=== PATIENT | female | born 1970 | race African-American/Black ===

== ENCOUNTER 2021-11-12 09:47 | Emergency (ER) | payer OTHER, SELFPAY ==
[2021-11-12 09:49] VITALS: BP 152/87; PULSE 70; RESP 18; TEMP 36.4; O2SAT 100
[2021-11-12 10:04] VITALS: BP 139/93; PULSE 74; RESP 18; TEMP 36.6; O2SAT 98
[2021-11-12 10:31] LABS: Basophils Percent Auto 0.5 % (0.2-1.2); Eosinophils Absolute Auto 0.1 K/mm3 (0-0.3); Eosinophils Percent Auto 0.8 % (0-4.4); Hematocrit 40.4 % (37.0-47.0); Hemoglobin 13.7 g/dL (12.0-15.0); Immature Granulocyte Absolute 0.03 K/mm3 (0.00-0.031); Immature Granulocyte Percent A 0.5 % (0-0.5); Lymphocytes Absolute Auto 2.16 K/mm3 (0.9-3.2); Lymphocytes Percent Auto 32.9 % (18.3-44.2); Mean Corpuscular HGB Conc 33.9 g/dl (32-36); Mean Corpuscular Hemoglobin 31.4 pg (26-34); Mean Corpuscular Volume 92.7 fl (80-100); Mean Platelet Volume 8.7 fl (7.4-10.4); Monocytes Absolute Auto 0.5 K/mm3 (0.1-0.6); Neutrophils Absolute Auto 3.8 K/mm3 (1.3-6.7); Neutrophils Percent Auto 58.3 % (45.5-73.1); Platelet Count Result 340 k/mm3 (150-375); Red Blood Count 4.36 M/mm3 (4.2-5.4); Red Cell Distribution Width 13.1 % (11.5-14.5); White Blood Count 6.6 K/mm3 (4.5-10.0)
[2021-11-12 10:38] LABS: Add Urine Microscopic? YES; Appearance Urine Clear (Clear); Bilirubin Urine Negative (Negative); Blood Urine Negative (Negative); Color Urine Yellow (Yellow); Glucose Urine UA Negative (Negative); Ketones Urine 1+ mg/dL (Negative); Leukocyte Esterase Ur Negative LEU/UL (Negative); Mucus Urine Moderate /lpf; Nitrate Urine Negative (Negative); Protein Urine 1+ mg/dL (Negative); Specific Grav Ur 1.028 (1.001-1.035); Squamous Epithelial Cell Urine Few /hpf (Few); WBC Urine 0-3 /hpf
[2021-11-12 10:42] LABS: Alanine Aminotransferase 27 U/L (4-35); Albumin Level 4.5 g/dL (3.5-5.1); Alkaline Phosphatase 91 U/L (38-126); Anion Gap 12 mmol/L (8-16); Aspartate Amino Transferase 37 U/L (14-36); Bilirubin,Total 0.9 mg/dL (0.2-1.3); Blood Urea Nitrogen 11 mg/dL (7-17); Calcium 8.9 mg/dL (8.4-10.2); Carbon Dioxide 23 mmol/L (22-30); Chloride 104 mmol/L (98-107); Estimated CRCL calculation 99 ml/min; Estimated Glomerular Filt Rate > 60; Glucose 105 mg/dL (65-110); Lipase 62 U/L (23-300); Potassium 3.2 mmol/L (3.4-5.0); Sodium 139 mmol/L (137-145)
--- NOTE | 2021-11-12 10:52 | ED.ABDPAIN ---
HPI - Abdominal Pain General Chief Complaint: Abdominal Pain <AKASH Wang Last Filed: 11/12/21 12:31> Stated Complaint: stomach problems <AKASH Wang Last Filed: 11/12/21 12:31> Time Seen by Provider: 11/12/21 10:14 <AKASH Wang Last Filed: 11/12/21 12:31> Source: patient <AKASH Wang Last Filed: 11/12/21 12:31> Mode of arrival: ambulatory <AKASH Wang Last Filed: 11/12/21 12:31> Limitations: no limitations <AKASH Wang Last Filed: 11/12/21 12:31> History of Present Illness HPI narrative: 51-year-old female presents to the ED with a 3-day history of diarrhea and intermittent diffuse abdominal pain. She was initially experiencing 4-5 episodes of watery diarrhea however states diarrhea is beginning to improve with 2 episodes yesterday and one episode since waking today. She at times experiences crampy abdominal pain although denies abdominal pain currently. She has noticed a small amount of bright red blood in her stool today. No recent history of documented fever, chills, nausea, or vomiting. She is status post liposuction and abdominoplasty. She denies other abdominal surgical history. Daughter recently with similar symptoms. Patient states that she was diagnosed with COVID-19 2 weeks ago. She has not taken any medication for her current symptoms. No recent antibiotic use or recent hospitalizations. <AKASH Wang Last Filed: 11/12/21 12:31> Related Data Home Medications: Home Medications Medication Instructions Recorded Confirmed amlodipine 11/12/21 11/12/21 lisinopril 11/12/21 <AKASH Wang Last Filed: 11/12/21 12:31> Allergies/Adverse Reactions: Allergies Allergy/AdvReac Type Severity Reaction Status Date / Time No Known Allergies Allergy Verified 11/12/21 10:06 <AKASH Wang Last Filed: 11/12/21 12:31> Review of Systems Review of Systems: CONSTITUTIONAL: Denies fever, chills, or sweats. EYES: Denies visual changes, redness, or discharge. ENT: Denies rhinorrhea, congestion, sore throat, or otalgia. CARDIOVASCULAR: Denies chest pain, palpitations, or edema. RESPIRATORY: Denies cough or dyspnea. GASTROINTESTINAL: + Diarrhea and abdominal pain GENITOURINARY: Denies dysuria or hematuria. SKIN: Denies rash or itching. MUSCULOSKELETAL: Denies back pain, joint pain, or myalgia. NEUROLOGIC: Denies headache, numbness, dizziness, or weakness. PSYCHIATRIC: Denies anxiety or depression. <Ranjan Moran PA-C - Last Filed: 11/12/21 12:31> All systems reviewed & are unremarkable except as noted in HPI and below <Ranjan Moran PA-C - Last Filed: 11/12/21 12:31> Exam Narrative: GENERAL: Well-appearing, well-nourished, and in no acute distress. HEAD: Normocephalic, atraumatic. EYES: PERRLA and EOMI. ENT: Nares clear, no rhinorrhea or epistaxis. Mucous membranes moist. Oropharynx without tonsillar hypertrophy exudate or other lesions. Bilateral TMs pearly huitron nonbulging NECK: Supple. No adenopathy or masses. No carotid bruits or JVD CHEST: Clear to auscultation. No respiratory distress. No wheezes rales or rhonchi HEART: Regular rate and rhythm. No murmur heard. Normal peripheral pulses. ABDOMEN: Soft, nontender, nondistended, normal active bowel sounds. EXTREMITIES: Normal range of motion. No edema. SKIN: Warm, dry, no rash. NEURO: No focal deficits. Alert and oriented x3. PSYCH: Normal mood and affect. <Ranjan Moran PA-C - Last Filed: 11/12/21 12:31> Course Course Emergency Course: Patient presents with 3-day history of diarrhea with intermittent crampy abdominal pain. Abdomen is soft and nontender at this time. Labs reveal mild hypokalemia, potassium given in the ED. Patient given fluid bolus as well. Suspect viral etiology. Low suspicion for surgical intra-abdominal emergency, therefore imaging of the abdomen felt to
[2021-11-12] MEDS: SODIUM CHLORIDE 0.9% IV 1,000 ML 999 ML IV CONT (10:56)
[2021-11-12] MEDS: POTASSIUM CHLORIDE 20 MEQ PACKET (FOR LIQUID) 40 MEQ PO (10:56)
[2021-11-12 13:10] VITALS: BP 157/90; PULSE 86; RESP 14; O2SAT 100
== END 2021-11-12 13:10 | disposition home or self-care (01) ==
PROVIDERS: Emergency Provider Emergency Medicine; PCP Internal Medicine Infectious Disease
DX: R19.7 Diarrhea, unspecified (principal); R10.9 Unspecified abdominal pain; Z86.16 Personal history of COVID-19
CPT/HCPCS: 36415; 80053; 81001; 81025; 83690; 85025; 96360; 99283; A9270; J7030

== ENCOUNTER 2024-04-25 23:52 | Emergency (ER) | payer OTHER, SELFPAY ==
--- NOTE | ~2024-04-25 | XR_ITS ---
Clinical Indication: Chest pain PA and lateral views of the chest: Comparison: 06/08/2016 Findings: The lungs are clear, without evidence of focal consolidation or pleural effusion. Cardiome diastinal silhouette is within normal limits. Bones and soft tissues are unremarkable. Impression: Normal chest. Reviewed, dictated and finalized at location . Impression: Normal chest.
[2024-04-25 23:53] VITALS: BP 174/101; PULSE 101; RESP 17; TEMP 36.4; O2SAT 100
--- NOTE | 2024-04-25 23:53 | ECG_ITS ---
Test Date: 2024-04-25 23:59:10 Measurements Intervals [place] Rate: 100 P: 61 DE: 139 QRS: 8 QRSD: 97 T: -1 QT: 336 QTc: 434 Interpretive Statements SINUS TACHYCARDIA NONSPECIFIC T-WAVE ABNORMALITY- INF/LAT LEADS BASELINE WANDER- V6 BORDERLINE ECG No previous ECG available for comparison Electronically Signed On 04-26-2024 06:16:02 CDT by Jericho Dao D.O.
--- NOTE | 2024-04-26 00:32 | ECG_ITS ---
Test Date: 2024-04-26 04:56:29 Measurements Intervals [place] Rate: 64 P: 57 NM: 165 QRS: 5 QRSD: 94 T: 21 QT: 395 QTc: 410 Interpretive Statements SINUS RHYTHM LEFT VENTRICULAR HYPERTROPHY CONSIDER INFERIOR INFARCT, AGE INDETERMINATE NONSPECIFIC T-WAVE ABNORMALITY- ANTERIOR LEADS ABNORMAL ECG Compared to ECG 04/25/2024 23:59:10 HEART RATE HAS DECREASED Electronically Signed On 04-26-2024 06:18:12 CDT by Jericho Dao D.O.
[2024-04-26 01:57] LABS: Basophils Absolute Auto 0.1 K/mm3 (0.0-0.1); Basophils Percent Auto 0.7 % (0.2-1.2); Eosinophils Absolute Auto 0.2 K/mm3 (0-0.3); Eosinophils Percent Auto 3.1 % (0-4.4); Hematocrit 39.2 % (37.0-47.0); Hemoglobin 13.5 g/dL (12.0-15.0); Immature Granulocyte Absolute 0.01 K/mm3 (0.00-0.031); Immature Granulocyte Percent A 0.1 % (0-0.5); Lymphocytes Absolute Auto 3.17 K/mm3 (0.9-3.2); Lymphocytes Percent Auto 42.6 % (18.3-44.2); Mean Corpuscular HGB Conc 34.4 g/dl (32-36); Mean Corpuscular Hemoglobin 31.8 pg (26-34); Mean Corpuscular Volume 92.2 fl (80-100); Mean Platelet Volume 8.6 fl (7.4-10.4); Monocytes Absolute Auto 0.6 K/mm3 (0.1-0.6); Monocytes Percent Auto 8.2 % (2.6-8.5); Neutrophils Absolute Auto 3.4 K/mm3 (1.3-6.7); Neutrophils Percent Auto 45.3 % (45.5-73.1); Platelet Count Result 302 k/mm3 (150-375); Red Blood Count 4.25 M/mm3 (4.2-5.4); Red Cell Distribution Width 13.1 % (11.5-14.5); White Blood Count 7.4 K/mm3 (4.5-10.0)
[2024-04-26 02:07] LABS: INR 0.9; Prothrombin Time 12.9 Seconds (11.1-14.7)
[2024-04-26 02:08] LABS: Alanine Aminotransferase 17 U/L (6-35); Albumin Level 4.5 g/dL (3.5-5.1); Alkaline Phosphatase 93 U/L (38-126); Anion Gap 8 mmol/L (4-12); Aspartate Amino Transferase 23 U/L (14-36); Bilirubin,Total 0.9 mg/dL (0.2-1.3); Blood Urea Nitrogen 15 mg/dL (7-17); Calcium 9.2 mg/dL (8.4-10.2); Carbon Dioxide 21 mmol/L (22-30); Chloride 110 mmol/L (98-107); Estimated Glomerular Filt Rate > 60; Glucose 121 mg/dL (65-110); Lipase 92 U/L (23-300); Partial Thromboplastin Time 29.2 Seconds (22.3-36.8); Potassium 3.5 mmol/L (3.4-5.0); Sodium 139 mmol/L (137-145)
[2024-04-26 02:16] LABS: D Dimer < 0.27 ug/mL (<0.48)
[2024-04-26 02:20] LABS: Troponin I < 0.012 ng/mL (0.000-0.034)
[2024-04-26 02:30] VITALS: BP 142/82; PULSE 86; RESP 15; O2SAT 98
[2024-04-26 02:40] VITALS: O2SAT 98
[2024-04-26 02:51] LABS: NT Pro B Type Natriuretic Pept < 20 pg/mL (19.9-100)
[2024-04-26] MEDS: ASPIRIN 81 MG CHEWABLE TABLET 324 MG PO (03:13)
--- NOTE | 2024-04-26 03:23 | ED.CHESTPAIN ---
HPI - Chest Pain General Chief Complaint: Chest Pain Stated Complaint: chest pain Time Seen by Provider: 04/26/24 01:56 Source: patient Limitations: no limitations History of Present Illness HPI narrative: Patient is a 53-year-old female presents to the emergency department complaining of chest pain. Patient states the pain started around 10:00 p.m. tonight, while at rest, comes and goes, no history is pain in the past but has had similar pain that wasn't persistent like this, has a try anything for the pain, has not noticed anything makes the pain better or worse. Patient denies history of heart disease. Patient does admit to history of high blood pressure, diabetes, high cholesterol. Patient denies family history of heart disease at a young age. Patient denies being a smoker. Patient states that when the pain is there last approximately 1 second, is located just above her right breast, goes away for approximately 15 minutes then returns. Patient denies nausea, vomiting, cough, fever, difficulty breathing, numbness, weakness, urinary discomfort, abdominal pain, palpitations. Patient denies history of blood clots. Related Data Home Medications Medication Instructions Recorded Confirmed amlodipine 11/12/21 11/12/21 lisinopril 11/12/21 Allergies Allergy/AdvReac Type Severity Reaction Status Date / Time No Known Allergies Allergy Verified 11/12/21 10:06 Review of Systems Review of Systems: A 10 system review of systems was completed on the patient and is negative except for what is stated in the HPI. Nursing and ancillary documentation was reviewed. PMFSH Comments At time of signature, I have reviewed and agree with nursing past medical, surgical, social and family history unless otherwise noted. Please see the nursing chart for further information. There is no relevant family history pertinent to the presenting complaint. Exam Narrative: CONST: No acute distress. Well nourished. HENMT: Head is normocephalic and atraumatic. Moist mucous membranes. No posterior oropharynx erythema. EYES: No conjunctival icterus, injection, or pallor. PERRL. NECK: No meningeal signs. No JVD. RESP: Able to speak in full sentences. Normal respiratory effort. CTAB. CARDIO: Regular rate. Regular rhythm. 2+ DP and radial pulses bilaterally. GI: Nondistended. No tenderness to palpation. Soft. : No CVA tenderness to palpation. SKIN: No rashes or lesions noted on exposed skin. NEURO: Oriented x3. Moves all extremities. EXTREM/MSK/BACK: No pedal edema. No chest wall tenderness to palpation. PSYCH: Normal affect. Course Vital Signs Vital signs: Vital Signs Temperature 97.6 F 04/25/24 23:53 Pulse Rate 101 H 04/25/24 23:53 Respiratory Rate 17 04/25/24 23:53 Blood Pressure 174/101 H 04/25/24 23:53 Pulse Oximetry 100 04/25/24 23:53 Oxygen Delivery Room Air 04/25/24 23:53 Temperature 97.6 F 04/25/24 23:53 Pulse Rate 67 04/26/24 05:19 Respiratory Rate 14 04/26/24 05:19 Blood Pressure 131/83 04/26/24 05:19 Pulse Oximetry 98 04/26/24 05:19 Oxygen Delivery Room Air 04/26/24 02:40 MDM - Chest Pain MDM Narrative Medical decision making narrative: Patient presents with the above complaint. Initial vitals are remarkable for no significant abnormalities. Physical examination as noted above. Differential diagnosis includes was not limited to: ACS, pneumonia, pneumothorax, costochondritis, GERD, pulmonary embolism. Plan discussed: Laboratory analysis, EKG, chest x-ray, aspirin, continues cardiac monitoring, continuous pulse oximetry. Patient was reassessed at the bedside. No changes in physical exam. Patient is in no acute distress. The patient has remained stable throughout the entire ED visit. patient admits to feeling better at this time. Counseled patient regarding diagnostic results and potential diagnosis. Anticipatory guidance provided. Patient instructed to follow up
[2024-04-26 04:00] VITALS: BP 149/88; PULSE 75; RESP 15; O2SAT 100
[2024-04-26] MEDS: KETOROLAC 15 MG/ML VIAL (*BKC) IV PUSH (04:02)
[2024-04-26] MEDS: FAMOTIDINE 20 MG/2 ML VIAL IV PUSH (04:02)
[2024-04-26 05:19] VITALS: BP 131/83; PULSE 67; RESP 14; O2SAT 98
[2024-04-26 05:22] LABS: Troponin I < 0.012 ng/mL (0.000-0.034)
== END 2024-04-26 05:52 | disposition home or self-care (01) ==
PROVIDERS: Emergency Provider Student in an Organized Health Care Education/Training Program; PCP Internal Medicine Infectious Disease
DX: R07.9 Chest pain, unspecified (principal); R00.0 Tachycardia, unspecified; R94.31 Abnormal electrocardiogram [ECG] [EKG]; I51.7 Cardiomegaly
CPT/HCPCS: 36415; 71046; 80053; 83690; 83880; 84484; 85025; 85380; 85610; 85730; 93005; 96374; 96375; 99284; A9270; J1885

== ENCOUNTER 2025-04-20 10:39 | Emergency (ER) | payer OTHER, SELFPAY ==
[2025-04-20 10:51] VITALS: BP 148/86; PULSE 92; RESP 16; TEMP 37; O2SAT 100
--- NOTE | 2025-04-20 11:26 | ED_ITS ---
HPI - Back Pain/Injury General Chief Complaint: Back Pain/Injury Stated Complaint: BACK PAIN Time Seen by Provider: 04/20/25 11:10 Source: patient and RN notes reviewed Mode of arrival: ambulatory Limitations: no limitations History of Present Illness HPI Narrative: 54-year-old female presents Express Care complaining of low back pain for approximately 2 weeks. Patient denies any apparent injury but states that she might have did something when she lifted a case of bottled water. Patient reports mid back pain that radiates to both sides of her low back and into her buttocks. Patient denies any shooting pain into her legs. Patient reports that the burning sensation. Patient denies any loss of bowel or bladder function, saddle anesthesia, weakness to her legs. Patient has taken [id number] pain medication without relief. Related Data Home Medications ?Medication ?Instructions ?Recorded ?Confirmed ?Last Taken ?Type amlodipine 11/12/21 11/12/21 Unknown History lisinopril 11/12/21 Unknown History Allergies Allergy/AdvReac Type Severity Reaction Status Date / Time No Known Allergies Allergy Verified 11/12/21 10:06 Review of Systems Review of Systems: CONSTITUTIONAL: Denies fever, chills, or sweats. EYES: Denies visual changes, redness, or discharge. ENT: Denies rhinorrhea, congestion, sore throat, or otalgia. CARDIOVASCULAR: Denies chest pain, palpitations, or edema. RESPIRATORY: Denies cough or dyspnea. GASTROINTESTINAL: Denies abdominal pain, nausea, vomiting, or diarrhea. GENITOURINARY: Denies dysuria or hematuria. SKIN: Denies rash or itching. MUSCULOSKELETAL: Positive for back pain. Negative for joint pain, or myalgia. NEUROLOGIC: Denies headache, numbness, loss of bowel or bladder, saddle anesthesia, or weakness. PSYCHIATRIC: Denies anxiety or depression. All other systems reviewed are negative, except as documented in HPI. PMFSH Comments At the time of my signature, I reviewed and agree with the nursing past medical, surgical, social, and family history. There is no relevant family history pertinent to the patient complaint. Exam Narrative: GENERAL: This is a well-nourished, well-developed adult, in no apparent distress. They are non ill-appearing, nontoxic appearing. HEAD: normocephalic, atraumatic. EYES: Sclera clear/white. Conjunctiva normal. Vision is grossly intact. Extraocular movements intact EARS: External ears normal, Hearing grossly intact. NOSE: External nose normal THROAT: Mucous membranes moist, NECK: Neck supple, CARDIOVASCULAR: Regular rate and rhythm RESPIRATORY: Respiratory rate normal, respiratory effort nonlabored, no respiratory distress SKIN: warm, Dry, intact with no suspicious lesions or rash, good texture and turgor. NEURO: awake, alert, and oriented to person, place and time. There were no obvious focal neurologic abnormalities. EXTREMITIES: No joint tenderness, effusion, or edema noted. BACK: Tenderness to palpation throughout low back. No cervical, thoracic, or lumbar point tenderness, no crepitus, or step-offs. No CVA tenderness. Course Course Emergency Course: Portions of this record may have been created with voice recognition software Level of Care: Express Care Visit Vital Signs Vital signs: Vital Signs Temperature 98.6 F 04/20/25 10:51 Pulse Rate 92 04/20/25 10:51 Respiratory Rate 16 04/20/25 10:51 Blood Pressure 148/86 H 04/20/25 10:51 Pulse Oximetry 100 04/20/25 10:51 Temperature 98.6 F 04/20/25 10:51 Pulse Rate 92 04/20/25 10:51 Respiratory Rate 16 04/20/25 10:51 Blood Pressure 148/86 H 04/20/25 10:51 Pulse Oximetry 100 04/20/25 10:51 Reviewed MDM - Back Pain/Injury MDM Narrative Medical decision making narrative: Symptoms appear to be consistent with with sciatica. Will prescribe a course of prednisone. Also prescribe muscle relaxes and lidocaine patches. Discussed physical exam findings. Advised supportive measures and signs/symptoms to go to the ER. Pt is appropriate for outpt treatment and f/u. Differential Diagnosis Differential diagnosis: Likely lumbar radiculopathy, sciatica and strain of lumbar region Critical Care Time Critical Care Time Critical Care Time: No Discharge Plan Discharge Clinical Impression: Low back pain Patient Disposition: Home Condition: Stable Instructions: Sciatica (ED), Acute Low Back Pain (ED) Additional Instructions: Take the muscle relaxer as directed. Do not drive or operate heavy machine, or work while taking the medication as it can make you drowsy. Take the prednisone as directed, take it in the morning take with food. Use the lidocaine patches as directed. You may take Tylenol or ibuprofen as needed for pain Please follow-up with your primary care provider if pain persist Rest. Avoid pushing, pulling, lifting --running or excessive walking-- or anything that worsens the symptoms You may try stretching your lower back or doing spinal decompression to help with symptoms. Go to the emergency department if you develop any numbness or tingling to your groin, weakness in your legs, or any loss of bowel or bladder function. Patient Language: Kazakh Prescriptions: New prednisone 20 mg tablet 40 mg PO DAILY 3 Days Qty: 6 0RF methocarbamol 750 mg tablet 750 mg PO TID Qty: 12 0RF lidocaine 5 % adhesive patch,medicated 1 patch topical DAILY Qty: 15 0RF Rx Instructions: leave on most painful area for up to 12 hrs No Action acetaminophen 500 mg tablet 500 mg PO Q6H PRN (Reason: pain) Qty: 30 0RF famotidine 20 mg tablet 20 mg PO DAILY Qty: 14 0RF ibuprofen 400 mg tablet 400 mg PO Q6H PRN (Reason: pain) Qty: 30 0RF amlodipine lisinopril dicyclomine 10 mg capsule 10 mg PO QID Qty: 20 0RF Follow-up/Referrals: Kermit,Vianca Morales [Primary Care Provider] - Time of Disposition: 11:24
== END 2025-04-20 11:29 | disposition home or self-care (01) ==
PROVIDERS: PCP Internal Medicine Infectious Disease
DX: M54.50 Low back pain, unspecified (principal); I10 Essential (primary) hypertension; E78.00 Pure hypercholesterolemia, unspecified
CPT/HCPCS: 99213; G0463

== ENCOUNTER 2025-05-17 09:17 | Outpatient (CLI) | payer OTHER, SELFPAY ==
--- NOTE | ~2025-05-17 | US_ITS ---
US abdomen complete EXAMINATION: US Abdomen Complete INDICATION: Abdominal pain PROCEDURE: Realtime High Resolution abdomen ultrasound. COMPARISON: No prior studies for comparison FINDINGS: Gallbladder within normal limits. No gallstones, pericholecystic fluid, gallbladder wall t hickening or biliary dilatation. Common bile duct measures 4.6 mm. Liver echotexture is heterogeneous with nodular liver surface, consistent with cirrhosis.. Pancreas within normal limits. Pancreatic tail is obscured by bowel gas. Spleen is unremarkeable. Renal echo texture is within normal limits bilaterally without hydronephrosis, contour deforming mass or renal s tone. There are left renal cysts. Right kidney measures 10 cm. Left kidney measures 10.4 cm. Visualized aspects of the aorta and IVC are within normal limits. Portal vein is patent. No sonograph ic Cordero's sign indicated by the technologist. IMPRESSION: 1: Cirrhosis of the liver. Reviewed, dictated and finalized at location A. IMPRESSION: 1: Cirrhosis of the liver.
--- NOTE | ~2025-05-17 | XR_ITS ---
XR lumbar spine 2-3V 05/17/2025 10:56 Indication: Low back pain Procedure: 3 views lumbar spine Comparison: 09/23/2010 Findings: No fracture, subluxation or dislocation. Vertebral body heights are maintained. There is di sc narrowing at L5-S1. No evidence for spondylolisthesis. Pedicles intact. There are eggshell calcifi cations in the pelvis, likely partially calcified uterine fibroids. Impression: 1: Mild lumbar spondylosis. Reviewed, dictated and finalized at location B. Impression: 1: Mild lumbar spondylosis.
--- OUTSIDE RECORDS SUMMARY | 2025-05-17 09:21 | XMS_ITS | Continuity of Care Document ---
Author Organization [facility] Address [address] [place] [address] [address] [place] [address] Phone Care Team Providers Care Medical Administrator Name Role Phone Gabrielle Kee Unavailable Unavailable Procedures Procedure Date Office/outpatient Visit, [facility] Advance Directives Directive Yes / No Effective Date File Name No Information Encounters Encounter Description Practice Location Reason(s) For Visit Diagnoses Date Provider Providers Copied on Encounter Office/outpat ient Visit, [facility], [address] [place] [address] [address], [place], [place], [id number], [place] tel:[phone] [facility] No Information [address]. [address] , [address], [place], [address], [place]. tel:[phone] Family History Family Member Type Diagnosis Age At Onset No Information Payers Payer name Insurance type Covered libertarian ID Authoriza tion(s) [employer] [place] Out [place] [id number] Social History Type Description Quantity Date Captured Comments Sex Female Smoking Status No Information Chief Complaint And Reason For Visit No Information Reason For Referral Reason For Referral No Information History Of Present Illness Encounter Date Complaint History Of Prese nt Illness No Information Functional Status Date Functional Assessmen t No Information Instructions Date Instruction Additional Infor mation No Information Assessments Type Assessment Date No Information Patient Care Teams Name Effective Dates (start - stop) Status Members No Information
--- OUTSIDE RECORDS SUMMARY | 2025-05-17 09:21 | XMS_ITS | Clinical Summary ---
Author Organization [facility] at the [facility] Address [address] [place] [address] Care Team Providers Care Valve Setter Name Role Phone Andrew Carmen MD Primary Care Provider Allergies No known active allergies Medications ibuprofen (ADVIL,MOTRIN) 600 mg tablet take 1 tablet (600MG) by ORAL route 3 times every day with food 90 2 1 Active amLODIPine (NORVASC) 10 mg tablet amlodipine 10 mg tablet Active hydrOXYzine (ATARAX) 25 mg tablet hydroxyzine HCl 25 mg tablet Active lisinopriL (PRINIVIL,ZESTR IL) 40 mg tablet lisinopril 40 mg tablet Active loratadine (CLARITIN) 10 mg tablet loratadine 10 mg tablet Active dicyclomine (BENTYL) 10 mg capsule dicyclomine 10 mg capsule TAKE ONE CAPSULE BY MOUTH FOUR TIMES DAILY NEEDED. Active PARoxetine (PAXIL) 10 mg tablet Take 1 tablet (10 mg total) by mouth daily Active rosuvastatin (CRESTOR) 20 mg tablet rosuvastatin 20 mg tablet Active medroxyPROGESTE Rory 150 mg/mL injectionIndica tions:Well woman exam ADMINISTER 1 ML(150 MG) IN THE MUSCLE EVERY 3 MONTHS DIRECTED 1 mL 3 5 Active Active Problems Problem Noted Date Diagnosed Date Benign hypertension 03/15/2022 Chest pain 03/15/2022 Chronic constipation 03/15/2022 Dysuria 03/15/2022 Helicobacter pylori gastrointestinal tract infec tion 03/15/2022 Impaired fasting glucose 03/15/2022 Pain in lower limb 03/15/2022 Family history of breast cancer 11/16/2020 Influenza vaccination declined 11/16/2020 Cystocele with incomplete uterovaginal prolapse 05/02/2018 Mixed stress and urge urinary incontinence 05/02 Major depressive disorder 12/20/2017 Unexplained weight loss 12/20/2017 Encounters Date Type Department Care Team Description 03/10/2025 Results Follow-Up [facility] Obstetrical Gynecology [facility] [address] [place] [address] Arthur Dickey MD Empower BRCA1 & BRCA2 and Multi-Cancer (40) 03/03/2025 1:00 PM CDT Clinical Support [facility] Obstetrical Gynecology [facility] [address] [place] [address] Negative test (Primary Dx); Encounter for management and injection of depo-Provera 02/24/2025 1:15 PM CDT Clinical Support [facility] Obstetrical Gynecology [address] [facility] [address] [place] [address] Family history of breast cancer (Primary Dx) from Last 3 Months Surgical History Surgery Date Site/Laterality Comments BREAST LUMPECTOMY 10/23/2010 - 10/22/2011 BENIGN COMBINED HYSTEROSCOPY DIAGNO STIC / D&C 10/23/2016 - 10/22/2017 ABDOMINAL SURGERY Manuel stewart Medical History Medical History Date Comments Hypertension Hypertension Cystocele with uterine prolapse History of anemia Family History Medical History Relation Name Comments Coronary artery disease Father Chinmay nary artery disease; Cause of : Coronary artery disease Diabetes type II Mother Diabetes -T ype II; Hypertension Mother Hypertension; Breast cancer Sister Ovarian cancer Neg Hx Relation Name Status Comments Father (Age 48) Mother Sister Social History Tobacco Use Types Packs/Day Years Used Date Smoking Tobacco: Never Alcohol Use Standard Drinks/Week Comments No 0 (1 standard drink = 0.6 oz pur e alcohol) Comments No Sex and Gender Information Value Date Recorded Sex Assigned at Not on file Legal Sex Female 3:58 PM SOCIAL MEDIA COMMUNITY MANAGER Gender Identity Not on file Sexual Orientation Not on file Obstetrics History Para Term AB IAB SAB Ectopic Multiple Livin g Live Births 3 3 Date Outcome GA Total Labor Labor/2nd/3rd Weight Sex Type Anes PTL Ailyn A1 A5 Name Clin Para Para Para Comments One TAB LTR 15.7% 11/2023 Last Filed Vital Signs Vital Sign Reading Time Taken Comments Blood Pressure 122/70 10/14/2024 12:36 PM SOCIAL MEDIA COMMUNITY MANAGER Pulse 107 06/13/2017 10:28 AM CDT Temperature 36.6 C (97.9 F) 06/13/2017 10:28 AM CDT Respiratory Rate - - Oxygen Saturation 99% 06/13/2017 10:28 AM CDT Inhaled Oxygen Concentration - - Weight 76.2 kg (168 lb) 10/14/2024 12:36 PM SOCIAL MEDIA COMMUNITY MANAGER Height 167.6 cm (5' 6) 10/14/2024 12:36 PM SOCIAL MEDIA COMMUNITY MANAGER Body Mass Index 27.12 10/14/2024 12:36 PM SOCIAL MEDIA COMMUNITY MANAGER Plan of Treatment Health Maintenance Due Date Last Done Comments Colon Cancer Screening-Colonoscopy 1970 Depression Screening 1970 Hepatitis C Screening 1970 Hepatitis B Screening 1988 Pneumococcal vaccine <65 (1 of 2 - PCV) 1989 Zoster Vaccine (1 of 2) 2020 Covid-19 Vaccine (3 - 2023-2 5 season) 2024 2021, 08/16/2021 Influenza Vaccine (#1) 2025 Cervical Cancer Screening 10/14/20252023, 10/14/2024, 05/31/2021, Additional history exists Regular Well Visit/Exam 18-64 10/14/2025, 07/03/2023, 05/31/2021, Additional history exists Breast Cancer Screening-Mammogram 01/20/2026 01/20/2025, 12/11/2023, 08/05/2020, Additional history exists DTaP/Tdap/Td Vaccine (2 - Td or Tdap) 11/15/2028 11/15/2018 Procedures Procedure Name Priority Date/Time Associated Diagnosis Comments POCT HCG, URINE Routine 03/03/2025 1:20 PM CDT Negative test Encounter for management and injection of depo-Provera EMPOWER BRCA1 & BRCA2 AND MULTI-CANCER (40) Routine 02/24/2025 1:25 PM CDT Family history of breast cancer SCREENING MAMMOGRAM BILATERAL W ELDON Schedule Routine, Read Routine (OP Routine) 01/20/2025 1:48 PM CDT Encounter for screening mammogram for malignant neoplasm of breast HIGH RISK HPV DNA DETECTION WITH GENOTYPING Routine 10/14/2024 12:37 PM SOCIAL MEDIA COMMUNITY MANAGER Well woman exam from Last 3 Months or Most Recently Relevant to Health Maintenance Results * POCT hCG, urine (03/03/2025 1:20 PM CDT) HCG, ur, POC Negative Negative Lot Number [id number] QC Backgroud Clear Acceptable QC Control Line Acceptable Urine 03/03/2025 1:20 PM CDT Arthur Dickey MD POINT OF CARE TEST ORDE RABLES Final Result * Empower BRCA1 & BRCA2 and Multi-Cancer (40) (02/24/2025 1:25 PM CDT) Pathologist [facility] REPORT SUMMARY NEGATIVE 03/07/2025 10:53 PM CDT [facility] Comment: Negative for 40 out of 40 genes. Warren Luis, Ph.D., [facility], Creative/Art Director No known pathogenic or likely pathogenic variants were detected in the 40 genes analyzed. FOOTNOTES See Notes 03/07/2025 10:53 PM CDT [facility] Comment: CLIA: ID #[id number] Test performed by [facility]. [address] [place] [address] Warren Luis, Ph.D., [facility], Creative/Art Director Blood specimen (specimen) (Oral Cavity) 02/24/2025 1:25 PM CDT 03/07/2025 10:53 PM CDT Arthur Dickey MD LAB GENETIC TESTING Fin al Result [facility] [address] [place] [address], [facility] * Screening Mammogram Bilateral W Eldon (01/20/2025 1:48 PM CDT) Anatomical Region Laterality Modality Breast Bilateral Mammography Impressions 01/20/2025 5:22 PM CDT BI-RADS ATLAS category (overall): 1 - Negative There is no mammographic evidence of malignancy. A 1 year screening mammogram is recommended. The patient has been or will be contacted. We recommend annual screening mammography for women at average risk of breast cancer beginning at age 40, based on guidelines of the [place] [employer] (ACR Practice Parameter for the Performance of Screening and Diagnostic Mammography) and [place] [employer]. For women with and elevated risk of breast cancer, please refer to the ACR Practice Parameter for specific screening recommendations. The patient will be entered into a reminder system with a target due date of 1 year for her next screening exam. Narrative 01/20/2025 5:22 PM CDT Screening Mammogram Bilateral W Eldon: 01/20/25 The study was acquired using full field digital technology and interpreted from soft copy. 2D digital mammographic views, as well as 3D digital tomosynthesis were performed in the CC and MLO projections. This study was resulted using Computer-Aided Detection (CAD). CLINICAL: Encounter for screening mammogram for malignant neoplasm of breast. No relevant medical history has been documented for this patient. History of breast cancer in Sister. COMPARISONS: 12/11/2023 Screening Mammogram Bilateral W Eldon 08/05/2020 Screening Mammogram 2D Bilateral BREAST TISSUE: The breasts are heterogeneously dense, which may obscure small masses. FINDINGS: No suspicious masses, suspicious calcifications, or other suspicious findings are seen within either breast. There has been no suspicious change. Arthur Dickey MD IMG MAMMO PROCEDURES Fi nal Result * High Risk HPV DNA Detection with Genotyping (Molecular component) (10/14/2024 12:37 PM SOCIAL MEDIA COMMUNITY MANAGER) HPV HR 16 Not Detected Not Detected [facility] Comment:Testing performed by : [facility], [address] [place]., [address] HPV HR 18 Not Detected Not Detected N[facility] Comment:Testing performed by : [facility], [address] [place]., [address] HPV HR Non 16/18 Not Detected Not Detected [facility] Comment: Interpretive Data Nucleic acid amplification for detection of high-risk Human Papilloma virus (HPV) is performed by the Aracely Fransisco 6800 HPV test. This assay specifically detects HPV-16 and HPV-18 genotypes. The following HPV genotypes are detected as high-risk HPV: HPV-31, 33, 35, ,39, 45, 51, 52, 56, 58, 59, 66, and 68. This assay has been approved by the [place] Food and Drug Administration for detection of HPV in cervical specimens collected by a physician using an endocervical brush/spatula or cervical broom and placed in the ThinPrep Pap Test PreservCyt collection containers. The performance characteristics of this test have been verified by the [facility] Molecular Infectious Disease laboratory. Correlate with separately reported cytology results, as applicable. Interpretive data last revised 23 Testing performed by: [facility], [address] [place]., [address] Endocervical 10/14/2024 12:3 7 PM SOCIAL MEDIA COMMUNITY MANAGER 10/14/2024 9:50 PM SOCIAL MEDIA COMMUNITY MANAGER Narrative NICK - 10/15/2024 5:29 AM SOCIAL MEDIA COMMUNITY MANAGER Clinical history and diagnosis->screen Number of vials->1 Testing type->Screening Last menstrual period (date if known)->Depo Menstrual status->Regular Contraceptive use->Depo-provera Arthur Dickey MD LAB BODY FLUIDS AND STO OLS ORDERABLES Final Result [facility] [id number] [facility] Department [place] [address] [facility] from Last 3 Months or Most Recently Relevant to Health Maintenance Insurance [facility] Address: [place] [address] [facility] Address: [place] [address] Care Teams Valve Setter Relationship Specialty [place] [address] [place] [id number] PCP - General 08/05/20
--- OUTSIDE RECORDS SUMMARY | 2025-05-17 09:21 | XMS_ITS | Referral Summary ---
Author Organization [facility] Address [address] [place] [address] Care Team Providers Care Manager Investment Banking Name Role Phone Andrew Carmen MD Primary Care Provider Encounters Date Type Department Care Team Description 03/10/2025 Results Follow-Up [facility] Obstetrical Gynecology [address] [place] [address] [address] [place] [address] Arthur Dickey MD Empower BRCA1 & BRCA2 and Multi-Cancer (40) 03/03/2025 1:00 PM CDT Clinical Support [facility] Obstetrical Gynecology [address] [place] [address] [address] [place] [address] Negative test (Primary Dx); Encounter for management and injection of depo-Provera 02/24/2025 1:15 PM CDT Clinical Support [facility] Obstetrical Gynecology [address] [place] [address] [address] [place] [address] Family history of breast cancer (Primary Dx) from Last 3 Months Allergies No known active allergies Medications ibuprofen [...] EVERY 3 MONTHS DIRECTED 1 mL 3 Active Active Problems Problem Noted Date Diagnosed [...] depressive disorder 12/20/2017 Unexplained weight loss 12/20/2017 Social History Tobacco Use Types Packs/Day Years Used Date Smoking Tobacco: Never Alcohol Use Standard Drinks/Week Comments No 0 (1 standard drink = 0.6 oz pur e alcohol) Comments No Sex and Gender Information Value Date Recorded Sex Assigned at Not on file Legal Sex Female 3:58 PM ORDER ENTRY REPRESENTATIVE Gender Identity Not on file Sexual Orientation Not on file Last Filed Vital Signs Vital Sign Reading Time Taken Comments Blood Pressure 122/70 10/14/2024 12:36 PM ORDER ENTRY REPRESENTATIVE Pulse 107 06/13/2017 10:28 AM CDT Temperature 36.6 C (97.9 F) 06/13/2017 10:28 AM CDT Respiratory Rate - - Oxygen Saturation 99% 06/13/2017 10:28 AM CDT Inhaled Oxygen Concentration - - Weight 76.2 kg (168 lb) 10/14/2024 12:36 PM ORDER ENTRY REPRESENTATIVE Height 167.6 cm (5' 6) 10/14/2024 12:36 PM ORDER ENTRY REPRESENTATIVE Body Mass Index 27.12 10/14/2024 12:36 PM ORDER ENTRY REPRESENTATIVE Plan of Treatment Not on file Procedures Procedure Name Priority Date/Time Associated Diagnosis [...] DETECTION WITH GENOTYPING Routine 10/14/2024 12:37 PM ORDER ENTRY REPRESENTATIVE Well woman exam from Last 3 Months or Most Recently Relevant to Health Maintenance Results * POCT hCG, urine (03/03/2025 1:20 PM CDT) HCG, ur, POC Negative Negative Lot Number [id number] QC Backgroud Clear Acceptable QC Control Line Acceptable Urine 03/03/2025 1:20 PM CDT Arthur Dickey MD POINT OF CARE TEST ORDE GHANSHYAM Final Result * Empower BRCA1 & BRCA2 and Multi-Cancer (40) (02/24/2025 1:25 PM CDT) REPORT SUMMARY NEGATIVE 03/07/2025 10:53 PM CDT [facility] Comment: Negative for 40 out of 40 genes. Warren Luis, Ph.D., [facility], Casino Duty Manager No known pathogenic or likely pathogenic variants were detected in the 40 genes analyzed. FOOTNOTES See Notes 03/07/2025 10:53 PM CDT [facility] Comment: CLIA: ID #[id number] Test performed by [facility]. [address] [place] [address] Warren Luis, Ph.D., [facility], Casino Duty Manager Blood specimen (specimen) (Oral Cavity) 02/24/2025 1:25 PM CDT 03/07/2025 10:53 PM CDT Arthur Dickey MD LAB GENETIC TESTING Fin al Result [facility] [address] [place] [address], [facility] * Screening Mammogram Bilateral W Eldon (01/20/2025 [...] age 40, based on guidelines of the [place] (ACR Practice Parameter for the Performance of Screening and Diagnostic Mammography) and [place]. For women [...] breast. There has been no suspicious change. us Arthur Dickey MD IMG MAMMO PROCEDURES Fi nal Result * High Risk HPV DNA Detection with Genotyping (Molecular component) (10/14/2024 12:37 PM ORDER ENTRY REPRESENTATIVE) HPV HR [address] [facility] Comment:Testing performed by : [facility], [address] [place]., [address] HPV HR 18 Not Detected Not Detected [facility] AND[facility] Comment:Testing performed by : [facility], [address] [place]., [address] HPV HR Non 16/18 Not Detected Not [...] this test have been verified by the [facility] Molecular Infectious Disease laboratory. Correlate with separately reported cytology results, as applicable. Interpretive data last revised 23 Testing performed by: [facility], [address] [place] [address], [address] Endocervical 10/14/2024 12:3 7 PM ORDER ENTRY REPRESENTATIVE 10/14/2024 9:50 PM ORDER ENTRY REPRESENTATIVE Narrative NICK ANDERSON - 10/15/2024 5:29 AM ORDER ENTRY REPRESENTATIVE Clinical history and diagnosis->screen Number of vials->1 Testing type->Screening Last menstrual period (date if known)->Depo Menstrual status->Regular Contraceptive use->Depo-provera Arthur Dickey MD LAB BODY FLUIDS AND STO OLS ORDERABLES Final Result [facility] ANDERSON [address] [facility] [place] [address] [facility] from Last 3 Months or Most Recently Relevant to Health Maintenance Insurance [facility] CHO[facility] PL[facility] Care Teams Manager Investment Banking Relationship Specialty Start Date End Date Andrew Carmen MD [address] [place] [id number] PCP - General 08/05/20
--- OUTSIDE RECORDS SUMMARY | 2025-05-17 09:22 | XMS_ITS | Encounter Summary ---
Author Organization [facility] Care Team Providers Care Pomology Teacher Name Role Phone Evie Billings Primary Care Provider Basim Brady MD Primary Care Provider [phone] Andrew Carmen MD Primary Care Provider Encounter Details Date Type Department Care Team (Latest Contact Info) Description 06/13/2017 Orders Only [facility] CLINCON[facility] ProviderGurdeep MD [address] [place] [address] Social History Tobacco Use Types Packs/Day Years Used Date Smoking Tobacco: Never Assessed Alcohol Use Standard Drinks/Week Comments No 0 (1 standard drink = 0.6 oz pur e alcohol) Comments Unknown Sex and Gender Information Value Date Recorded Sex Assigned at Not on file Legal Sex Female 3:58 PM CONSUMER SERVICES CONSULTANT Gender Identity Not on file Sexual Orientation Not on file documented as of this encounter Plan of Treatment Not on file documented as of this encounter Procedures Procedure Name Priority Date/Time Associated Diagnosis Comments SCAN - PATHOLOGY 06/13/2017 12:0 0 AM CDT documented in this encounter Results * SCAN - PATHOLOGY (06/13/2017 12:00 AM CDT) Narrative 06/13/2017 12:00 AM CDT Ordered by an unspecified provider. Historical Provider Final Res ult documented in this encounter Visit Diagnoses Not on filedocumented in this encounter Care Teams Pomology Teacher Relationship Specialty Start Date End Date Evie iBllings[address] [place] [address] PCP - General 02/16/11 01/19/20 [place] [address] [place] [address] PCP - General Internal Medicine 01/20/20 08/04/20 [place] [address] [place] [address] PCP - General 08/05/20 documented as of this encounter
--- OUTSIDE RECORDS SUMMARY | 2025-05-17 09:22 | XMS_ITS | Encounter Summary ---
Author Organization [facility] Facility Care Team Providers Care Vanstone Machine Operator Name Role Phone Evie Billings Primary Care Provider [phone] Basim Brady MD Primary Care Provider [phone] Andrew Carmen MD Primary Care Provider Encounter Details Date Type Department Care Team (Latest Contact Info) Description 10/30/2017 Orders Only [facility] CLINCONV ProviderGurdeep MD [address] [place] [address] Social History Tobacco Use Types Packs/Day Years Used Date Smoking Tobacco: Never Assessed Alcohol Use Standard Drinks/Week Comments No 0 (1 standard drink = 0.6 oz pur e alcohol) Comments Unknown Sex and Gender Information Value Date Recorded Sex Assigned at Not on file Legal Sex Female 3:58 PM PROCUREMENT INSPECTOR Gender Identity Not on file Sexual Orientation Not on file documented as of this encounter Plan of Treatment Not on file documented as of this encounter Procedures Procedure Name Priority Date/Time Associated Diagnosis Comments SCAN - LABS 10/30/2017 12:00 AM PROCUREMENT INSPECTOR documented in this encounter Results * SCAN - LABS (10/30/2017 12:00 AM PROCUREMENT INSPECTOR) Narrative 10/30/2017 12:00 AM PROCUREMENT INSPECTOR Ordered by an unspecified provider. Historical Provider Final Res ult documented in this encounter Visit Diagnoses Not on filedocumented in this encounter Care Teams Vanstone Machine Operator Relationship Specialty Start Date End Date Evie Billings [address] [place] [address] PCP - General 02/16/11 01/19/20 [place] [address] [place] [address] PCP - General Internal Medicine 01/20/20 08/04/20 Andrew Carmen MD [address] [place] [address] PCP - General 08/05/20 documented as of this encounter
--- OUTSIDE RECORDS SUMMARY | 2025-05-17 09:22 | XMS_ITS | Data Portability ---
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 She wanted her lipid panel rechecked and she also brought up her sister's similar medical issues. I have explained to hank that rechecking her lipid panel would not change her need for a statin and I was not at liberty to discuss another patients' medical issues. oajao Not available 02/05/2024 13:51:50 Plan of Treatment Reminders Order Date Submit Date Provider Last Modified By Organization Details Last Modified Time Details Appointments ANY 30 2024 10:45A M Andrew Mariscal MD Not available Not available Not available Lab lipase, serum or plasma 2024 025 [facility], [address], [place], [address], 01/14/2025 13:11:01 H pylori urea breath test, co2 infrare d 2024 025 [facility], [address], [place], [address], 01/15/2025 15:11:38 basic metabol ic 1998 panel, serum or plasma 2024 025 [facility], [address], [place], [address], 01/14/2025 13:10:59 CBC 2024 025 [facility], [address], [place], [address], 01/14/2025 13:11:04 HbA1c (hemogl obin A1c), blood 2024 025 [facility], [address], [place], [address], 01/14/2025 13:11:02 lipid panel, serum 2024 025 [facility], [address], [place], [address], 01/14/2025 13:10:58 microal bumin/c reatini ne, mass ratio, urine 2024 025 [facility], [address], [place], [address], 01/14/2025 13:10:57 vaginal pathoge ns panel, SHIRA+pro be, vaginal fluid 2023 024 [facility], [address], [place], [address], 04/24/2024 11:14:33 chlamyd ia trachom atis + neisser ia gonorrh oeae + trichom onas vaginal is DNA panel, SHIRA+pro be, unspeci fied specime n 2023 024 [facility], [address], [place], [address], 04/24/2024 09:16:23 RPR (rapid plasma reagin) , serum 2023 024 [facility], [address], [place], [address], 04/24/2024 09:16:24 microal bumin/c reatini ne, mass ratio, urine 2023 024 [facility], [address], [place], [address], 02/06/2024 11:13:51 urinaly sis, dipstic k 2023 024 [facility], [address], [place], [address], 12/26/2023 06:16:38 CBC 2023 024 [facility], [address], [place], [address], 12/26/2023 06:16:39 lipid panel, serum 2023 024 [facility], [address], [place], [address], 12/26/2023 06:16:36 noninva sive colorec raphael cancer DNA + occult blood screeni ng, QL, stool 2023 024 [facility] (Cologuard Orders Only), [address], [address], [place], [address], 01/02/2024 10:02:36 HbA1c (hemogl obin A1c), blood 2023 024 [facility], [address], [place], [address], 12/26/2023 06:16:38 unliste d lab - TSH w/refle x 2023 024 [facility], [address], [place], [address], 12/26/2023 06:16:37 Referral diabeti c ophthal mology referra l 2024 025 [facility] [facility], [address] , [place], [address], 05/05/2025 10:50:[address]i st referra l 2024 025 [facility], [address], [place], [address], 05/05/2025 10:50:40 diabeti c ophthal mology referra l 2023 024 [facility], [address], [place], [address], 04/04/2024 11:39:05 nutriti onist/d ietitia n referra l 2023 024 [facility], [address], [place], [address], 04/22/2024 11:46:31 cardiol ogist referra l - Chest pain 2023 024 [facility], [address], [address], [place], [address], 04/10/2024 17:50:25 Procedures None recorde d. Surgeries None recorde d. Imaging XR, lumbosa cral spine - Worseni ng lower back pain 2024 025 [facility], [address] [place] [address], [address], 05/05/2025 10:40:37 US, abdomen , complet e - Epigast maria abdomin al pain 2024 025 [facility] (Imaging), [address], [address], 04/24/2025 15:16:43 XR, chest - Chest pain 2023 024 [facility] ([facility]), [address] [place], [address], 12/25/2023 12:07:56 Medication Orders rosuvas tatin 20 mg tablet 2024 025 [facility][id number], [address] [place] [address], [id number], 05/05/2025 11:06:22 lisinop ril 40 mg tablet 2024 025 [facility] #67759, [address] [place] [address], [id number], 05/05/2025 10:16:16 nifedip ine ER 90 mg tablet, extende d release 2024 025 [facility] #83331, [address] [place] [address], [id number], 05/05/2025 10:16:13 methoca rbamol 750 mg tablet 2024 025 [facility] #21856, [address] [place] [address], [id number], 05/05/2025 10:13:18 lisinop ril 40 mg tablet 2024 025 [facility] #14096, [address] [place] [address], [id number], 12/23/2024 12:56:03 nifedip ine ER 90 mg tablet, extende d release 2024 025 [facility] #30117, [address] [place] [address], [id number], 12/23/2024 12:55:53 aspirin 81 mg tablet, delayed release 2024 025 [facility] #68666, [address] [place] [address], [id number], 12/23/2024 12:53:13 flucona zole 150 mg tablet 2023 025 [facility] #73228, [address] [place] [address], [id number], 12/23/2024 12:46:22 aspirin 81 mg tablet, delayed release 2023 024 [facility] #46185, [address] [place] [address], [id number], 04/22/2024 12:01:10 rosuvas tatin 20 mg tablet 2023 024 [facility] #39084, [address] [place] [address], [id number], 02/05/2024 16:03:20 amlodip ine 10 mg tablet 2023 024 [facility] #97788, [address] [place] [address], [id number], 12/23/2024 12:55:31 lisinop ril 40 mg tablet 2023 024 [facility] #94392, [address] [place] [address], [id number], 12/18/2023 15:55:32 loratad ine 10 mg tablet 2023 024 [facility]96736, [address] [place] [address], [id number], 12/18/2023 16:05:07 Patient TargetsNo targets recorded. Patient Instructions Encounter Date Encounter Id Patient Instructions Last Modified By Organization Details Last Modified Time 12/18/2023 [id number] learning about healthy weight oajao Not available 12/18/2023 15:30:41 abnormal weight loss: care instructions oajao Not available 12/18/2023 15:20:00 Labs MMG report CXR Cologuard Cardiology Follow up in 8 weeks ER with severe chest pain oajao Not available 12/18/2023 15:32:43 02/05/2024 [id number] type 2 diabetes: care instructions oajao Not available 02/05/2024 13:06:14 Rosuvastatin Pad Machine Feeder Ophthalmology Exercise DM diet Follow up in 4 weeks oajao Not available 02/05/2024 13:32:52 Detailed visit oajao Not available 0 02/05/2024 13:54:23 04/22/2024 [id number] learning about mood disorders oajao Not available 04/22/2024 12:08:10 Fluconazole BH (Declined) Continue the current medications Follow up in 3-4 weeks oajao Not available 04/22/2024 12:17:22 12/23/2024 [id number] abdominal pain: care instructions oajao Not available 12/23/2024 12:56:36 A healthy lifestyle: care instructions oajao Not available 12/23/2024 14:13:02 learning about healthy weight oajao Not available 12/23/2024 14:12:49 Labs US Stop Amlodipine Start ASA Start Nifedipine Continue Rosuvastatin and Lisinopril Follow up in 4 weeks oajao Not available 12/23/2024 13:03:15 05/05/2025 [id number] learning about type 2 diabetes oajao Not available 05/05/2025 09:49:08 type 2 diabetes: care instructions oajao Not available 05/05/2025 09:49:08 back care and preventing injuries: care instructions oajao Not available 05/05/2025 10:04:09 Most recent Pap smear results from Dr Dickey X-ay PT Follow after her US is done hdoverma Not available 05/05/2025 10:18:57 Reason for Referral Human Resource Internship Referral for At ypical chest pain Chest pain Chest pain Referring Physician: Andrew Mariscal, Internal Medicine, Encounter Date: 12/18/2023 Diabetic Ophthalmology Refer ral for Type 2 diabetes mellitus without complication Referring Physician: Andrew Mariscal Internal Medicine, Encounter Date: 02/05/2024 Pad Machine Feeder/dietitian Refer ral for Type 2 diabetes mellitus without complication Referring Physician: Andrew Mariscal Internal Medicine, Encounter Date: 02/05/2024 Diabetic Ophthalmology Refer ral for Type 2 diabetes mellitus Referring Physician: Andrew Mariscal Internal Medicine, Encounter Date: 05/05/2025 Physical Therapist Referral for Low back pain Referring Physician: Andrew Mariscal Internal Medicine, Encounter Date: 05/05/2025 Results Created Date Observation Date Name Description Value Unit Range Abnormal Flag Note LastModifiedBy Organization Detail LastModifiedTime 12/25/1912/26/2023 LIPID PANEL cholesterol, total 193 mg/dL 100-19 9 Not Available [facility] ([facility]) [address] [place], [address], 12/26/2023 06:16:36 12/25/1912/26/2023 LIPID PANEL triglyceride s 116 mg/dL 0-149 Not Available [facility] ([facility]) [address] [place], [address], 12/26/2023 06:16:36 12/25/1912/26/2023 LIPID PANEL HDL cholesterol 38 mg/dL >39 below low normal Not Available [facility] ([facility]) [address] [place], [address], 12/26/2023 06:16:36 12/25/1912/26/2023 LIPID PANEL VLDL cholesterol chrissy 21 mg/dL 5-40 Not Available [facility] ([facility]) [address] [place], [address], 12/26/2023 06:16:36 12/25/19 24 12/26/2023 LIPID PANEL LDL chol calc ([email or web address] 134 mg/dL 0-99 above high normal Not Available [facility] ([facility]) [address] [place], [address], 12/26/2023 06:16:36 12/25/19 24 12/26/2023 TSH W/REF IRISH TSH 0.987 uIU/m L 0.450- 4.500 Not Available [facility] ([facility]) [address] [facility], [place], [address], 12/26/2023 06:16:37 12/25/19 24 12/25/2023 HEMOG LOBIN A1C hemoglobin A1C 6.5 % 4.8-5. 6 above high normal Predi abete s: 5.7 - 6.4 Diabe todd: >6.4 Glyce charlie contr ol for adult s with diabe todd: <7.0 Not Available [facility] ([facility]) [address] [place], [address], 12/26/2023 06:16:38 12/25/19 24 12/26/2023 URINA LYSIS , ROUTI NE specific gravity 1.026 1.005- 1.030 Not Available [facility] ([facility]) [address] [place], [address], 12/26/2023 06:16:38 12/25/19 24 12/26/2023 URINA LYSIS , ROUTI NE pH 6.5 5.0-7. 5 Not Available [facility] ([facility]) [address] [place], [address], 12/26/2023 06:16:38 12/25/19 24 12/26/2023 URINA LYSIS , ROUTI NE urine-color YELLOW yellow Not Available [facility] ([facility]) [address] [place], [address], 12/26/2023 06:16:38 12/25/19 24 12/26/2023 URINA LYSIS , ROUTI NE appearance CLEAR clear Not Available [facility] ([facility]) [address] [facility], [place], [address], 12/26/2023 06:16:38 12/25/19 24 12/26/2023 URINA LYSIS , ROUTI NE WBC esterase NEGATI VE negati ve Not Available [facility] ([facility]) [address] [facility], [place], [address], 12/26/2023 06:16:38 12/25/19 24 12/26/2023 URINA LYSIS , ROUTI NE protein TRACE negati ve/tra ce Not Available [facility] ([facility]) [address] [facility], [place], [address], 12/26/2023 06:16:38 12/25/19 24 12/26/2023 URINA LYSIS , ROUTI NE glucose NEGATI VE negati ve Not Available [facility] ([facility]) [address] [facility], [place], [address], 12/26/2023 06:16:38 12/25/19 24 12/26/2023 URINA LYSIS , ROUTI NE ketones NEGATI VE negati ve Not Available [facility] ([facility]) [address] [facility], [place], [address], 12/26/2023 06:16:38 12/25/19 24 12/26/2023 URINA LYSIS , ROUTI NE occult blood NEGATI VE negati ve Not Available [facility] ([facility]) [address] [facility], [place], [address], 12/26/2023 06:16:38 12/25/19 24 12/26/2023 URINA LYSIS , ROUTI NE bilirubin NEGATI VE negati ve Not Available [facility] ([facility]) [address] [place], [address], 12/26/2023 06:16:38 03/04/12/26/2023 URINA LYSIS , ROUTI NE urobilinogen ,semi-qn 1.0 mg/dL 0.2-1. 0 Not Available [facility] ([facility]) [address] [facility], [place], [address], 12/26/2023 06:16:38 12/25/19 24 12/26/2023 URINA LYSIS , ROUTI NE nitrite, urine NEGATI VE negati ve Not Available [facility] ([facility]) [address] [facility], [place], [address], 12/26/2023 06:16:38 12/25/1912/26/2023 URINA LYSIS , ROUTI NE microscopic examination COMMEN T Micro scopi c not indic ated and not perfo rmed. Not Available [facility] ([facility]) [address] [facility], [place], [address], 12/26/2023 06:16:38 12/25/19 24 12/25/2023 CBC, PLATE LET, NO DIFFE RENTI AL WBC 5.9 x10e3 /uL 3.4-10 .8 Not Available [facility] ([facility]) [address] [facility], [place], [address], 12/26/2023 06:16:39 12/25/19 24 12/25/2023 CBC, PLATE LET, NO DIFFE RENTI AL RBC 4.27 x10e6 /uL 3.77-5 .28 Not Available [facility] ([facility]) [address] [place], [address], 12/26/2023 06:16:39 12/25/19 24 12/25/2023 CBC, PLATE LET, NO DIFFE RENTI AL hemoglobin 13.3 g/dL 11.1-1 5.9 Not Available [facility] ([facility]) [address] [place], [address], 12/26/2023 06:16:39 12/25/19 24 12/25/2023 CBC, PLATE LET, NO DIFFE RENTI AL hematocrit 39.7 % 34.0-4 6.6 Not Available [facility] ([facility]) [address] [place], [address], 12/26/2023 06:16:39 12/25/19 24 12/25/2023 CBC, PLATE LET, NO DIFFE RENTI AL MCV 93 fL 79-97 Not Available [facility] ([facility]) [address] [facility], [place], [address], 12/26/2023 06:16:39 12/25/19 24 12/25/2023 CBC, PLATE LET, NO DIFFE RENTI AL MCH 31.1 pg 26.6-3 3.0 Not Available [facility] ([facility]) [address] [facility], [place], [address], 12/26/2023 06:16:39 12/25/19 24 12/25/2023 CBC, PLATE LET, NO DIFFE RENTI AL MCHC 33.5 g/dL 31.5-3 5.7 Not Available [facility] ([facility]) [address] [facility], [place], [address], 12/26/2023 06:16:39 12/25/19 24 12/25/2023 CBC, PLATE LET, NO DIFFE RENTI AL RDW 12.8 % 11.7-1 5.4 Not Available [facility] ([facility]) [address] [place], [address], 12/26/2023 06:16:39 12/25/19 24 12/25/2023 CBC, PLATE LET, NO DIFFE RENTI AL platelets 359 x10e3 /uL 150-45 0 Not Available [facility] ([facility]) [address] [place], [address], 12/26/2023 06:16:39 12/25/19 24 12/25/2023 COLOG UARD cologuard result reportable NEGATI VE negati ve normal NEGAT PERLA TEST RESUL T. A negat perla Colog uard resul t indic ates a low likel ihood that a color ectal cance r (CRC) or advan samira adeno ma (elaine omato us polyp s with more advan samira pre-m align ant featu res) is prese nt. The chanc e that a perso n with a negat perla Colog uard test has a color ectal cance r is less than 1 in 1500 (nega tive predi ctive value >99.9 %) or has an advan samira adeno ma is less than 5.3% (nega tive predi ctive value 94.7% ). These data are based on a prosp ectiv e cross -sect ional study of ,00 0 indiv idual s at [facility] risk for color ectal cance r who were scree bernard with both Colog uard and colon oscop y. (Alfredo Samayoa et al, N Engl J Med 2014; 370(1 4):12 86-12 97) The giselle l value (refe rence range ) for this assay is negat perla. COLOG UARD RE-SC REENI NG RECOM MENDA TION: Perio dic color ectal cance r scree sukhi is an impor tant part of preve ntive healt hcare for asymp tomat ic indiv idual s at [facility] risk for color ectal cance r. Follo wing a negat perla Colog uard resul t, the Ameri can Cance r Socie ty and U.S. Multi -Soci ety Task Force scree sukhi guide lines recom mend a Colog uard re-sc reeni ng inter ranjit of 3 years . Refer ences : Ameri can Cance r Socie ty Guide line for Color ectal Cance r Scree sukhi: https ://zach solorzano cer.o rg/ca ncer/ colon -rect al-ca ncer/ detec tion- diagn osis- stagi ng/ac s-rec ommen datio ns.sridevi ml.; Mekhi LAWRENCE, Ozzie SAM, Marisol ROSARIO, Color ectal Cance r Scree sukhi: Recom menda tions for Physi cians and Patie nts from the U.S. Multi -Soci ety Task Force on Color ectal Cance r ScreCarlos hernandez y 2017; 112:1 016-1 030. TEST DESCR IPTIO N: Veteran site algor ithmi c derrick sis of stool DNA-b iofausto kers with hemog lobin immun oassa y. Quant itati ve value s of indiv idual bioma rkers are not repor table and are not assoc iated with indiv idual bioma rker resul t refer ence range s. Colog uard is inten ded for color ectal cance r scree sukhi of adult s of eithe r sex, 45 years or older , who are at the medical center for color ectal cance r (CRC) . Colog uard has been appro musa for use by the U.S. FDA. The perfo rmanc e of Colog uard was estab lishe d in a cross secti onal study of the medical center adult s aged 50-84 . Colog uard perfo rmanc e in patie nts ages 45 to 49 years was estim ated by sub-g roup derrick sis of near- age group s. Colon oscop ies perfo rmed for a posit perla resul t may find as the most clini jose signi fican t lesio n: color ectal cance r [4.0% ], advan samira adeno ma (incl uding sessi le kinga luis polyp s great er than or equal to 1cm diame ter) [20%] or non- advan samira adeno ma [31%] ; or no color ectal neopl lidia [45%] . These estim ates are deriv ed from a prosp ectiv e cross -sect ional scree sukhi study of 10,00 0 indiv idual s at [facility] risk for color ectal cance r who were scree bernard with both Colog uard and colon oscop y. (Alfredo Teague al, N Engl J Med 2014; 370(1 4):12 86-12 97.) Colog uard may produ ce a false negat perla or false posit perla resul t (no color ectal cance r or preca ncero us polyp prese nt at colon oscop y follo w up). A negat perla Colog uard test resul t does not guara ntee the absen ce of CRC or advan samira adeno ma (pre- cance r). The curre nt Colog uard scree sukhi inter ranjit is every 3 years . (Amer ican Cance r Socie ty and U.S. Multi -Soci ety Task Force ). Colog uard perfo rmanc e data in a ,00 0 patie nt pivot al study using colon oscop y as the refer ence metho d can be acces sed at the follo wing locat ion: www.e xactl abs.c om/re sulprecious . Addit ional descr iptio n of the Colog uard test proce ss, warni ngs and preca ution s can be found at www.c ologu paresh.c om. Not Available [facility] [facility] (Cologuard Orders Only) [address], [place], [address], 01/02/2024 10:02:36 02/05/20 24 02/06/2024 ALBUM IN/CR EAT RATIO , RANDO M UR creatinine, urine 166.7 mg/dL notest ab. Not Available [facility] ([facility]) [address] [facility], [place], [address], 02/06/2024 11:13:51 02/05/20 24 02/06/2024 ALBUM IN/CR EAT RATIO , RANDO M UR albumin, urine 31.1 ug/mL notest ab. Not Available [facility] ([facility]) [address] [facility], [place], [address], 02/06/2024 11:13:51 02/05/20 24 02/06/2024 ALBUM IN/CR EAT RATIO , RANDO M UR alb/creat ratio 19 mg/g_ creat 0-29 Giselle l: 0 - 29 Moder ately incre ased: 30 - 300 Sever madison incre ased: >300 Not Available [facility] ([facility]) [address] [facility], [place], [address], 02/06/2024 11:13:51 04/22/20 24 04/24/2024 CT, NG, TRICH VAG BY SHIRA chlamydia by SHIRA NEGATI VE negati ve Not Available [facility] ([facility]) [address] [facility], [place], [address], 04/24/2024 09:16:23 04/22/20 24 04/24/2024 CT, NG, TRICH VAG BY SHIRA gonococcus by SHIRA NEGATI VE negati ve Not Available [facility] ([facility]) [address] [facility], [place], [address], 04/24/2024 09:16:23 04/22/20 24 04/24/2024 CT, NG, TRICH VAG BY SHIRA trich vag by SHIRA NEGATI VE negati ve Not Available [facility] ([facility]) [address] [facility], [place], [address], 04/24/2024 09:16:23 04/22/20 24 04/23/2024 RPR, RFX QN RPR/C ONFIR M TP RPR NON REACTI VE nonrea ctive Not Available [facility] ([facility]) [address] [place], [address], 04/24/2024 09:16:24 04/22/20 24 04/24/2024 NUSWA B VAGIN ITIS PLUS (VG+) atopobium vaginae LOW - 0 score Not Available [facility] ([facility]) [address] [place], [address], 04/24/2024 11:14:33 04/22/20 24 04/24/2024 NUSWA B VAGIN ITIS PLUS (VG+) bvab 2 LOW - 0 score Not Available [facility] ([facility]) [address] [place], [address], 04/24/2024 11:14:33 04/22/20 24 04/24/2024 NUSWA B VAGIN ITIS PLUS (VG+) megasphaera 1 LOW - 0 score Calcu late total score by renny chapin the 3 indiv idual bacte rial vagin osis (BV) marke r score s toget her. Total score is inter prete d as follo ws: Total score 0-1: Indic ates the absen ce of BV. Total score 2: Indet ermin ate for BV. Addit ional clini chrissy data shoul d be evalu ated to estab fady a diagn osis. Total score 3-6: Indic ates the prese nce of BV. Not Available [facility] ([facility]) [address] [facility], [place], [address], 04/24/2024 11:14:33 04/22/20 24 04/24/2024 NUSWA B VAGIN ITIS PLUS (VG+) ashley albicans, SHIRA NEGATI VE negati ve Not Available [facility] ([facility]) [address] [place], [address], 04/24/2024 11:14:33 04/22/20 24 04/24/2024 NUSWA B VAGIN ITIS PLUS (VG+) ashley glabrata, SHIRA NEGATI VE negati ve Not Available [facility] ([facility]) [address] [place], [address], 04/24/2024 11:14:33 04/22/20 24 04/24/2024 NUSWA B VAGIN ITIS PLUS (VG+) trich vag by SHIRA NEGATI VE negati ve Not Available [facility] ([facility]) [address] [place], [address], 04/24/2024 11:14:33 04/22/20 24 04/24/2024 NUSWA B VAGIN ITIS PLUS (VG+) chlamydia trachomatis, SHIRA NEGATI VE negati ve Not Available [facility] ([facility]) [address] [facility], [place], [address], 04/24/2024 11:14:33 04/22/2004/24/2024 NUSWA B VAGIN ITIS PLUS (VG+) neisseria gonorrhoeae, SHIRA NEGATI VE negati ve Not Available [facility] ([facility]) [address] [facility], [place], [address], 04/24/2024 11:14:33 01/14/2001/14/2025 ALBUM IN/CR EAT RATIO , RANDO M UR creatinine, urine 353.3 mg/dL notest ab. Not Available [facility] ([facility]) [address] [facility], [place], [address], 01/14/2025 13:10:57 01/14/2001/14/2025 ALBUM IN/CR EAT RATIO , RANDO M UR albumin, urine 49.0 ug/mL notest ab. Not Available [facility] ([facility]) [address] [facility], [place], [address], 01/14/2025 13:10:57 01/14/2001/14/2025 ALBUM IN/CR EAT RATIO , RANDO M UR alb/creat ratio 14 mg/g_ creat 0-29 Giselle l: 0 - 29 Moder ately incre ased: 30 - 300 Sever madison incre ased: >300 Not Available [facility] ([facility]) [address] [facility], [place], [address], 01/14/2025 13:10:57 01/14/2001/14/2025 LIPID PANEL cholesterol, total 114 mg/dL 100-19 9 Not Available [facility] ([facility]) [address] [facility], [place], [address], 01/14/2025 13:10:58 01/14/20 25 01/14/2025 LIPID PANEL triglyceride s 83 mg/dL 0-149 Not Available [facility] ([facility]) [address] [place], [address], 01/14/2025 13:10:58 01/14/20 25 01/14/2025 LIPID PANEL HDL cholesterol 38 mg/dL >39 below low normal Not Available [facility] ([facility]) [address] [place], [address], 01/14/2025 13:10:58 01/14/20 25 01/14/2025 LIPID PANEL VLDL cholesterol chrissy 17 mg/dL 5-40 Not Available [facility] ([facility]) [address] [place], [address], 01/14/2025 13:10:58 01/14/20 25 01/14/2025 LIPID PANEL LDL chol calc (nih) 59 mg/dL 0-99 Not Available [facility] ([facility]) [address] [place], [address], 01/14/2025 13:10:58 01/14/20 25 01/14/2025 BASIC METAB OLIC PANEL (7) glucose 117 mg/dL 70-99 above high normal Not Available [facility] ([facility]) [address] [place], [address], 01/14/2025 13:10:59 01/14/2001/14/2025 BASIC METAB OLIC PANEL (7) BUN 14 mg/dL 6-24 Not Available [facility] ([facility]) [address] [place], [address], 01/14/2025 13:10:59 01/14/2001/14/2025 BASIC METAB OLIC PANEL (7) creatinine 0.74 mg/dL 0.57-1 .00 Not Available [facility] ([facility]) [address] [place], [address], 01/14/2025 13:10:59 01/14/20 25 01/14/2025 BASIC METAB OLIC PANEL (7) eGFR 96 mL/mi n/1.7 3 >59 Not Available [facility] ([facility]) [address] [place], [address], 01/14/2025 13:10:59 01/14/20 25 01/14/2025 BASIC METAB OLIC PANEL (7) BUN/creatini ne ratio 19 9-23 Not Available [facility] ([facility]) [address] [place], [address], 01/14/2025 13:10:59 01/14/20 25 01/14/2025 BASIC METAB OLIC PANEL (7) sodium 141 mmol/ L 134-14 4 Not Available [facility] ([facility]) [address] [facility], [place], [address], 01/14/2025 13:10:59 01/14/2001/14/2025 BASIC METAB OLIC PANEL (7) potassium 4.3 mmol/ L 3.5-5. 2 Speci men recei musa hemol yzed. Value may be incre ased by hemol ysis. Clini chrissy corre latio n indic ated. Not Available [facility] ([facility]) [address] [facility], [place], [address], 01/14/2025 13:10:59 01/14/2001/14/2025 BASIC METAB OLIC PANEL (7) chloride 107 mmol/ L 96-106 above high normal Not Available [facility] ([facility]) [address] [place], [address], 01/14/2025 13:10:59 01/14/2001/14/2025 BASIC METAB OLIC PANEL (7) carbon dioxide, total 16 mmol/ L 20-29 below low normal Not Available [facility] ([facility]) [address] [place], [address], 01/14/2025 13:10:59 01/14/2001/14/2025 LIPAS E lipase 25 U/L 14-72 Not Available [facility] ([facility]) [address] [facility], [place], [address], 01/14/2025 13:11:01 01/14/2001/14/2025 HEMOG LOBIN A1C hemoglobin A1C 6.7 % 4.8-5. 6 above high normal Predi abete s: 5.7 - 6.4 Diabe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 hypertension 06808453 On Lisinopril 40mg po daily and Amlodipine 5mg po daily Improvemen t noted Keep follow up appointmen t 07/17/2015 [id number] [facility] [address] [place] [address] 10/27/2015 16:08:16 10/27/2015 18:04:40 Benign hypertension 99144046 I10 Uncontroll ed on Lisinopril 40mg po daily and Amlodipine 5mg po daily, she has been out of her Amlodipine and even when I last saw her , the control was suboptimal . Her BP was also high (190/120) during her stress test in August 2015. I would like to continue her Lisinopril at 40mg and increase her Amlodipine to 10mg, side effects were discussed in detail. She should monitor her BP closely at home and follow up in 2-4 weeks. Side effects including dizziness, headaches and edema were discussed in detail, she remains opposed to diuretics. I have explained to her the importance of complying with a low salt diet, patient education materials on a low salt diet and BP control were provided. Close follow up in 2 weeks. Complicati ons of uncontroll ed HTN, including renal failure, [place] and strokes were discussed. It appears that she may need her FMLA renewed for her office visits, I have also prescibed her a home BP monitor. Helicobact er pylori gastrointestinal tract infection 452403203 B96.81 She was treated with sequential therapy with Rabeprazol e/Amoxicil corin/Clarit hromycin/T inidazole, although she may not have taken them exactly when they were due A MONIQUE is still needed [id number] MD Jyoti Davis (Adult Med) [address] [place] [phone] 11/20/2015 13:58:39 11/20/2015 17:02:05 Benign hypertension 12760497 I10 Uncontroll ed on Lisinopril 40mg po daily and Amlodipine 10mg po daily She needs her FMLA paperwork renewed for her doctor's visits. Helicobact er detected by breath test 699066370 B96.81 She was treated with sequential therapy with Rabeprazol e/Amoxicil corin/Clarit hromycin/T inidazole, although she may not have taken them exactly when they were due [id number] MD Jyoti Davis (Adult Med) [address] [place] [phone] 0 11/17/2016 14:17:49 11/18/2016 11:44:57 Viral screening 503600798 Z11.59 Atypical chest pain 1025 44097 R07.89 Most likely MSK Imaging of lung abnormal 053071496 R91.8 Diagnostic MMG needed and I have again given her the order General ex amination of patient 194534889 Z00.01 Benign hypertension 1072 5009 I10 Stable on Lisinopril 40mg po daily and Amlodipine 10mg po daily. Immunization refused 275 275449 Z28.20 [id number] MD Jyoti Davis (Adult Med) [address] [place] [address]188[address] 0 03/13/2017 09:47:55 03/13/2017 10:39:34 Major depressive disorder 536595467 F32.9 Benign ess ential hypertension 5892734 I10 Uncontroll ed on Lisinopril and Amlodipine , I will add HCTZ 12.5 Screening mammography 24 483071 Z12.31 [id number] MD Jyoti Davis (Adult Med) [address] [place] [address] 0 12/20/2017 15:53:39 12/20/2017 16:50:51 Adult health examination 857217329 Z00.00 Benign ess ential hypertension 6848049 I10 Suprapubic pain 22802246 6 R10.33 Chronic constipation 236 155208 K59.09 Chronic constipati on, previously referred to GI in May 2015, she states that she was never contacted. Screening for malignant neoplasm of breast 099687051 Z12.31 Major depr essive disorder 503765276 F32.9 Unexplaine d weight loss 509158666 R63.4 Seasonal allergy 3236081 04 J30.2 Noncomplia nce with medication regimen 028541111 Z91.14 Immunization refused 275 554393 Z28.20 [id number] Andrew Mariscal MD [facility] (Adult Med) [address] [place] [address]91[address] 0 11/15/2018 15:41:56 11/16/2018 08:27:53 Administration of diphtheria, pertussis, and tetanus vaccine 611127395 Z23 Influenza vaccination declined 347763849 Z28.21 Screening for malignant neoplasm of breast 677060812 Z12.31 Benign ess ential hypertension 3607569 I10 Major depr essive disorder 968503937 F32.9 Noncomplia nce with medication regimen 977500608 Z91.14 [id number] Andrew Mariscal MD [facility] (Adult Med) [address] [place] [address] 99518-888 0 01/09/2020 15:50:24 01/10/2020 10:31:09 Influenza vaccination declined 035635071 Z28.21 Low back pain 583564745 M54.5 The back pain and associated incontinen ce is concerning for cauda equina syndromeMR I Urinary incontinence 165 076244 R32 Benign hypertension 1072 5009 I10 Stable on Lisinopril 40mg po daily and Amlodipine 10mg po daily. [id number] MD Jyoti Davis (Adult Med) [address] [place] [address]27-757 0 02/21/2020 15:17:49 02/24/2020 11:38:30 Abnormal urinalysis 142174786 R82.90 Repeat UA Blood in urine 21281088 R31.9 Repeat UA Anxiety 97364624 F41.9 Start Vistaril, side effects were discussed [id number] MD Jyoti Davis (Adult Med) [address] [place] [address] 65354-804 0 11/16/2020 08:21:52 11/17/2020 07:41:29 Screening for malignant neoplasm of colon 278941133 Z12.11 Family his tory of breast cancer 237657587 Z80.3 Gastroesop hageal reflux disease 510547373 K21.9 Influenza vaccination declined 315121165 Z28.21 Benign hypertension 1072 5009 I10 Stable on Lisinopril 40 mg po daily and Amlodipine 10 mg po daily and HCTZ 12.5 mg po daily. Impaired f asting glycemia 260142528 R73.01 Medication monitoring 39 4134978 Z51.81 Swallowing painful 14698 002 R13.19 Resolved [id number] Ike Lloyd MD [facility] [address] [address] 12/29/2020 09:20:07 12/29/2020 15:18:18 Screening for malignant neoplasm of colon 273457682 Z12.11 [id number] MD Jyoti Davis (Adult Med) [address] [place] [address] 36473-828 0 12/29/2020 15:44:30 12/30/2020 08:34:47 Pre-surgery evaluation 310283963 Z01.818 Low risk of complicati ons unless her labs, EKG or CXR dictate otherwise Dyspnea on exertion 6084 5006 R06.09 Essential hypertension 35688627 I10 Influenza vaccination declined 801970172 Z28.21 Cramp 56542320 R25.2 Will await the results of her colonoscop y [id number] MD Jyoti Davis (Adult Med) [address] [place] [address] 10301-075 0 01/21/2021 08:27:03 01/22/2021 08:49:38 Urinary incontinence 023092791 R32 UA Urology Trial of Oxybutynin , side effects were discussed Impaired f asting glycemia 447247120 R73.01 Discussed She was made aware that she is at high risk of developing DM [id number] Quentin Walls MD [facility] [address] [place] [address]78[address] 2 03/10/2021 10:18:58 03/12/2021 09:56:27 Urinary incontinence 213171232 R32 [id number] MD [facility] (Adult Med) [address] [place] [address] 34173-900 0 03/08/2021 11:42:16 03/09/2021 08:28:15 Constipation 85905232 K59.00 Follow-up visit 79306608 9 Z09 Medication monitoring 39 4719883 Z51.81 Near syncope 251007458 R 55 [id number] [facility] (Peds) [address] [place] [address] 70259-515 0 08/16/2021 14:08:06 08/17/2021 14:18:11 Administration of SARS-CoV-2 antigen vaccine 021685153 Z23 [id number] [facility]) [address] [place] [address] 00672-674 0 2021 14:10:33 09/08/2021 08:46:08 Administration of SARS-CoV-2 mRNA vaccine 4458397319 Z23 [id number] MD [facility] (Adult Med) [address] [place] [address] 56544-282 0 06/17/2022 14:51:16 06/20/2022 10:00:08 Immunization advised 760528476 Z71.9 Generalize d anxiety disorder 73070499 F41.1 Screening for malignant neoplasm of colon 430864736 Z12.11 Benign hypertension 1072 5009 I10 Stable on Lisinopril 40 mg po daily and Amlodipine 10 mg po daily and HCTZ 12.5 mg po daily. Impaired f asting glycemia 527570448 R73.01 Discussed She was made aware that she is at high risk of developing DM Overactive urinary bladder 123111386 N32.81 Fecal fluid leakage 4391 42548 R15.9 Abdominal pain 28793808 R10.9 Seasonal a llergic rhinitis 961020432 J30.2 Adult heal th examination 612057222 Z00.01 History of SARS-CoV-2 29 06508902 17559829 Z86.16 [id number] MD Jyoti Davis (Adult Med) [address] [place] [address] 25146-035 0 12/18/2023 14:45:36 12/19/2023 08:09:38 Weight loss 33341299 R63.4 Influenza vaccination declined 036823423 Z28.21 Benign hypertension 1072 5009 I10 Stable on Lisinopril 40 mg po daily and Amlodipine 10 mg po daily Atypical chest pain 1025 10795 R07.89 Possibly MSK General ex amination of patient 216100696 Z00.01 Body mass index 25-29 - overweight 952669352 Z68.27 Seasonal a llergic rhinitis 411438591 J30.2 Screening for malignant neoplasm of colon 111229831 Z12.11 SARS-CoV-2 mRNA vaccine declined 0880688762 Z28.21 [id number] MD Jyoti Davis (Adult Med) [address] [place] [address] 49397-076 0 02/05/2024 12:41:00 02/07/2024 16:02:15 Benign hypertension 99743321 I10 Uncontroll ed today, previously stable on Lisinopril 40 mg po daily and Amlodipine 10 mg po daily Type 2 sam betes mellitus without complication 615729072 E11.9 Discussed in detailStar t Rosuvastat in, side effects including MSK luis alfredo and cramps were discussed [id number] MD Jyoti Davis (Adult Med) [address] [place] [address] 49394-007 0 04/22/2024 11:22:56 04/23/2024 09:46:48 Type 2 diabetes mellitus without complication 121475087 E11.9 Continue Rosuvastat in.Start ASA for CV protection . Benign hypertension 1072 5009 I10 Uncontroll ed today, she feels that her vaginal D/C has a bearing as she has been compliant with her Lisinopril 40 mg po daily and Amlodipine 10 mg po daily. [facility]86, I suspect she will need some changes on her next visit. Mood disorder 49508121 F 39 Vaginal discharge 987283 006 N89.8 [id number] MD Jyoti Davis (Adult Med) [address] [place] [address] 37656-807 0 12/23/2024 11:58:51 12/24/2024 12:13:04 Benign hypertension 74281141 I10 Uncontroll edStart Nifedipine , side effects were discussed including but not limited to a headache and dizzinessS top Amlodipine Continue Lisinopril OV 04/22/2024Un controlled today, she feels that her vaginal D/C has a bearing as she has been compliant with her Lisinopril 40 mg po daily and Amlodipine 10 mg po daily. [facility] also 150/86, I suspect she will need some changes on her next visit. Type 2 sam betes mellitus without complication 451003313 E11.9 Continue Rosuvastat in.Start ASA for CV protection .This was discussed again OV 4Co ntinue Rosuvastat in.Start ASA for CV protection . Abdominal pain 34113882 R10.9 Pneumococc al vaccination declined 592791652 Z28.21 Medication monitoring 39 9496453 Z51.81 Body mass index 25-29 - overweight 275319775 Z68.27 Overweight 945765418 E66 .3 [id number] MD Jyoti Davis (Adult Med) [address] [place] [address] 97151-817 0 05/05/2025 09:34:44 05/06/2025 12:32:46 Type 2 diabetes mellitus 58306406 E11.9 Annual eye exam needed OV 5Co ntinue Rosuvastat in.Start ASA for CV protection .This was discussed again OV 4Co ntinue Rosuvastat in.Start ASA for CV protection . Benign hypertension 1072 5009 I10 Uncontroll ed as she is yet to take her medication s today OV 12/23/2024Un controlled Start Nifedipine , side effects were discussed including but not limited to a headache and dizzinessS top Amlodipine Continue Lisinopril OV 04/22/2024Un controlled today, she feels that her vaginal D/C has a bearing as she has been compliant with her Lisinopril 40 mg po daily and Amlodipine 10 mg po daily. Her BP at her cardiologi st on 04/10/2024 was also 150/86, I suspect she will need some changes on her next visit. Low back pain 216319973 M54.50 Acute on chronic LBP that dates back to ~ the 01/09/2020 visit.Xray PT Health Concerns Section Related Observation LastModified by Organization Detai ls LastModified Time None Recorded Concern Status LastModified by Organization Details LastModified Time None Recorded Advance Directives Directive N: Payers Insurance Date Sequence Insurance Name Policy Number Policy Zaman Covered Member ID Zaman Member ID Guarantor Name 05/16/2025 1 [facility] (MEDICARE REPLACEMENT/A DVANTAGE - HMO) [id number] Darcie Gavin [id number] Darcie Gavin 05/05/2025 1 [facility] - OPEN ACCESS (POS) [id number] Darcie Gavin [id number] Darciedorene Gavin 05/05/2025 1 [facility] (PPO) [id number] Darcie Gavin [id number] Darciedorene Gavin 05/05/2025 1 [place] Darcie StRomaine [id number] Darcie Romaine 05/05/2025 [place] [facility] [id number] Darcie Gavin 05/05/2025 1 [facility] (MEDICAID HMO) [id number] Darcie StRomaine [id number] Darcie Romaine 05/05/2025 1 [facility] - DOS PRIOR TO 2021 (MEDICAID REPLACEMENT - HMO) Darcie StRomaine [id number] Darcie Romaine Notes Date Note Type Note Provider Name and Address Organization Details Recorded Time 4 text/html Hypertension F/UReported by PatientHPIFor associated symptoms, patient reportsno dizziness,no lightheadedness,no chest pain,no shortness of breath,no palpitations,no edema, andno calf pain with exertion. For lifestyle, patient reportsregular exerciseandlimiting/avoi ding salt. For medications, patient reportstaking medications as directedandno side effects from medication. Angina/Chest PainReported by PatientHPIFor quality, patient reportspressure. For severity, patient reportsvery limitingbut reportspain level 6/10. For context, patient reportsat restandoccurs with emotional stress. For aggravating factors, patient reportsworse with stress/emotional upset. For associated symptoms, patient reportsnauseabut reportsno dyspnea,no decrease in exercise capacity,no fatigue,no nocturnal episodes,no resting episodes,no associated palpitations, andno associated dizziness. For location, patient reportsmiddle chest. For duration, patient reportslasts seconds. For onset/timing, patient reportshas noted for months. For alleviating factors, patient reportsnothing gives relief.ROS as noted in the HPI Check up, I be feeling a little......I get chest pains, it comes and goes Ms Gavin was last seen on 06/17/2022, she has been compliant with all her medications but she has noticed chest pain with radiation to her neck. There is no diaphoresis, cough or SOB. Andrew Mariscal MD Attn: Accounting,[address] [place], [address], [facility] 12/18/2023 19:25:43 4 text/html DiabetesReported by PatientHPIFor associated symptoms, patient reportsweight loss (2 lbs)but reportsno weight gain,no dizziness,no sweats,no headaches,no confusion,no increased thirst,no increased appetite,no increased urination,no blurred vision,no numbness of feet, andno calluses on feet. For duration, patient reportsnew onset (12/25/2023). For onset/timing, patient reportsdiagnosed on: (12/25/2023). For control, patient reportshemoglobin a1c has been __ (6.5).ROS as noted in the HPI My follow upI don't want no machine Andrew Mariscal MD Attn: Accounting,[address], [place], [address], [place] [facility] 02/05/2024 13:54:40 4 text/html Diabetes F/UReported by PatientHPIFor review finger sticks, patient reportspost breakfast: 103. For labs, patient reportslast a1c result: 6.5. For context, patient reportstaking aspirin daily,not missing doses of medications, andno side effects from medications. For associated symptoms, patient reportsno weight gain,no weight loss,no dizziness,no sweats,no headaches,no confusion,no increased thirst,no increased appetite,no increased urination,no blurred vision,no numbness of feet, andno calluses on feet. Hypertension F/UReported by PatientHPIFor associated symptoms, patient reportsno dizziness,no lightheadedness,no chest pain,no shortness of breath,no palpitations,no edema, andno calf pain with exertion. For lifestyle, patient reportsregular exerciseandlimiting/avoi ding salt. For medications, patient reportstaking medications as directed,no side effects from medication, andchecks blood pressure at home, range: (it was low). Medicare Annual Wellness VisitReported by PatientSocial/Behavioral HistoryFor fracture risk, patient reportsno history of fractures,no recent explained fracture,no sudden unexplained fractures, andno previous musculoskeletal injuries. For physical activity, patient reportsexercises on a regular basis,recent increase in physical activity, andgood physical condition.Mental Status:For depression risk, patient reportshistory of depressionbut reportsnever feels sad, empty, or tearful,no loss of interest in activities,no significant changes in weight,no sleep disturbances or insomnia,no agitation,no loss of energy,no feelings of worthlessness or guilt,no thoughts of suicide, andno history of mood disorders. For orientation, patient reportsno disorientation to time,no disorientation to date, andno disorientation to place. For concentration and memory, patient reportsno decreased concentrating ability,no memory lapses or loss, anddoes not forget words. For speech/motor difficulties, patient reportsno speech difficulties,no difficulty expressing formulated concepts,no difficulty with fine manipulative tasks,no difficulty writing/copying,no slowed reaction time, anddoes not knock things over when trying to pick them up.Functional AbilityFor vision, patient reportsworse both distance and near. For hearing, patient reportsno loss of hearing. For activities of daily living, patient reportsable to bathe with limited or no assistance,able to contol urination and bowels,able to dress with limited or no assistance,able to feed self with limited or no assistance,able to get out of chair or bed with limited or no assistance,able to groom with limited or no assistance, andable to toilet with limited or no assistance. For instrumental activities of daily living, patient reportsable to do house work with limited or no assistance,able to grocery shop with limited or no assistance,able to manage medications with limited or no assistance,able to manage money with limited or no assistance,able to prepare meals with limited or no assistance, andable to use the phone with limited or no assistance. For falls risk assessment, patient reportsno frequent falls while walking,no fall in the past year,no fall since last visit, andno dizziness/vertigo. 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 She complains of anger issues and he admits to feeling depressed. She did not report HI or SI. She has vaginal itching and a discharge and she thinks it is a Yeast infection. Andrew Mariscal MD Attn: Accounting,[address] [facility], [place], [address], [place] [facility] 04/22/2024 13:41:23 5 text/html Hypertension F/UReported by PatientHPIFor associated symptoms, patient reportsno dizziness,no lightheadedness,no chest pain,no shortness of breath,no palpitations,no edema, andno calf pain with exertion. For lifestyle, patient reportsregular exerciseandlimiting/avoi ding salt. For medications, patient reportstaking medications as directedandno side effects from medication. Abdominal PainReported by PatientAbdominal PainFor quality, patient reportspain. For onset/timing, patient reportsworsebut reportswax/wane. For location, patient reportsepigastric. For severity, patient reportssevere. For duration, patient reportsintermittent. For modifying factors, patient reportsbelching(farting) . For associated symptoms, patient reportsno fever,no chills,no blood in the urine,no heartburn, andno shortness of breath. For other, patient reportsdenies possible .ROS as noted in the HPI My blood pressure keep bouncing on and offI have stomach pain Ms Gavin was in the ER in April, with chest pain and a BP of 174/101. She improved with Famotidine and denies any more chest pain. She has however been having epigastric pain which gets better after she burps or passes gas. Andrew Mariscal MD Attn: Accounting,[address] [place], [address], [facility] 12/23/2024 14:13:46 5 text/html Diabetes F/UReported by PatientHPIFor associated symptoms, patient reportsweight gain (2 lbs)but reportsno weight loss,no dizziness,no sweats,no headaches,no confusion,no increased thirst,no increased appetite,no increased urination,no blurred vision,no numbness of feet, andno calluses on feet. For labs, patient reportslast a1c result: 6.7%. For context, patient reportsnormal range of home blood sugars (in the low 100s),seeing eye doctor regularly,checking feet regularly,taking aspirin daily,not missing doses of medications, andno side effects from medications. Hypertension F/UReported by PatientHPIFor associated symptoms, patient reportsno dizziness,no lightheadedness,no chest pain,no shortness of breath,no palpitations,no edema, andno calf pain with exertion. For lifestyle, patient reportsregular exerciseandlimiting/avoi ding salt. For medications, patient reportstaking medications as directed,no side effects from medication, andchecks blood pressure at home, range: (138/70). Back PainReported by PatientHPIFor quality, patient reportssharp. For severity, patient reportspain level 0/10andsevere (8-10)but reportsimproving. For aggravating factors, patient reportsmovement/position ing. For associated symptoms, patient reportsincontinence (muscle spasm prevented her from moving and she was incontinent)but reportsno fever,no weak limbs,no numbness of the legs/feet,no tingling, andno shortness of breath. For location, patient reportspain is not radiating. For duration, patient reportsacute. For onset/timing, patient reportsrecurrent episode. For context, patient reportsprior back problemsandused medications for back pain. For alleviating factors, patient reportsrelieved by changing position.ROS as noted in the HPI My backI just ran out of medicine, Nifedipine and Losartan She presents with back pain and muscle spasms, she was seen at urgent care. The pain is chronic and in December of 2019 she had presented and an MRI of the low back was ordered, this was never done. The pain is intermittent and she can not recall an injury recently, but she did get relief from the methocarbamol that was prescribed Andrew Mariscal MD Attn: Accounting,[address] [facility], [place], [address], [facility] 05/05/2025 11:06:27 OBGyn Episode No OBEpisode recorded.
== END 2025-05-17 09:18 | disposition home or self-care (01) ==
PROVIDERS: PCP Internal Medicine Infectious Disease; Visit Provider Internal Medicine Infectious Disease
DX: M47.896 Other spondylosis, lumbar region (principal); K74.69 Other cirrhosis of liver
CPT/HCPCS: 72100; 76700